=== PATIENT | male | born 1990 | race African-American/Black ===

== ENCOUNTER 2017-03-19 04:09 | Emergency (ER) | payer OTHER ==
[2017-03-19 04:45] VITALS: BP 146/88; PULSE 66; TEMP 98.1; BMI 36.0
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
== END 2017-03-19 06:10 | disposition home or self-care (01) ==
LOC: JER 04:09
DX: M25.572 Pain in left ankle and joints of left foot (principal)
CPT/HCPCS: 73610-TC-LT; 99281-25

== ENCOUNTER 2019-05-12 10:19 | Emergency (ER) | payer BC, OTHER ==
[2019-05-12 10:24] VITALS: TEMP 97.7; BMI 34.9
--- NOTE | 2019-05-12 10:33 | PDOC ---
History of Present Illness - General Chief Complaint: Lightheaded Stated Complaint: DIZZY/FAINTING Time Seen by Provider: 05/12/19 10:33 History Source: Patient Exam Limitations: No Limitations - History of Present Illness Initial Comments: 28 year old male with no PMH, nicotine use (hookah, last vaped x1 year ago) presented to ED for lightheadedness x1 week, worsening yesterday. Patient reported he smoked hookah the night before his symptoms started. He reported he awoke feeling lightheaded as he stood from sitting to standing to get out of bed. He reported throughout the week he had a couple more occurrences, similar in that they seem to occur when he went from sitting to standing. He reported that yesterday he had three instances of lightheadedness, and that one of the episodes he almost passed out. He reported in that episode he up from sitting to standing and had immediately lifted his daughter above his head. He denied LOC, head injury, fall, chest pain, shortness of breath, the workshop of the swelling, history of travel, history of blood clot, history of hormone use, surgical history, hemoptysis, palpitations. He denied history of early cardiac in the family. ROS General: denied fever, chills, generalized weakness. HEENT: denied sore throat, rhinorrhea, ear pain. Cardiovascular: admitted to [facility]. denied chest pain, palpitations, syncope, diaphoresis. Respiratory: denied shortness of breath, cough, sputum production, hemoptysis. Gastrointestinal: denied abdominal pain, nausea, vomiting, diarrhea, constipation, blood in stool. Genitourinary: denied dysuria, increased urinary frequency, hematuria, urinary incontinence, flank pain. Back: denied back pain. Musculoskeletal: denied joint pain, muscle pain, joint swelling. Neurological: denied headache, dizziness, numbness, tingling, weakness. Integumentary: denied rash, laceration, abrasion. Hematologic/Lymphatic: denied bruising or bleeding. PE Constitutional: Well-nourished, Well-developed, appearing stated age. HEENT: head is normocephalic, atraumatic. EOMI. PERRLA. Neck: supple. Full ROM. Cardiovascular: regular heart rhythm. Normal S1 and S2. no murmurs. no pericardial friction rub. Respiratory: clear to auscultation bilaterally. no crackles, rhonchi or wheezing. no stridor. Gastrointestinal: soft, flat, nontender. normal bowel sounds. no rebound, guarding, or masses. Extremities: peripheral pulses intact and equal. no lower extremity edema noted. no calf tenderness bilaterally. Neurological: CN 2-12 grossly intact. moves all four extremities. Psych: awake, alert, oriented x3. follows commands. answers questions appropriately. Past History - Past Medical History Allergies/Adverse Reactions: Allergies Allergy/AdvReac Type Severity Reaction Status Date / Time No Known Allergies Allergy Verified 05/12/19 10:24 Home Medications: Ambulatory Orders NK [No Known Home Medication] 07/18/16 - Psycho Social/Smoking Cessation Hx Smoking History: Current every day smoker Have you smoked in the past 12 months: No Information on smoking cessation initiated: No Hx Alcohol Use: No Drug/Substance Use Hx: No *Physical Exam - Vital Signs Last Vital Signs Temp Pulse Resp BP Pulse Ox 97.7 F 67 18 116/87 99 05/12/19 10:21 05/12/19 10:21 05/12/19 10:21 05/12/19 10:21 05/12/19 10:21 ED Treatment Course - LABORATORY CBC & Chemistry Diagram: 05/12/19 11:00 05/12/19 11:00 Medical Decision Making - Medical Decision Making 28 year old male with above PMH presented to ED for lightheadedness episodes x1 week, worsening yesterday. Initial Vital Signs Temp Pulse Resp BP Pulse Ox 97.7 F 67 18 116/87 99 05/12/19 10:21 05/12/19 10:21 05/12/19 10:21 05/12/19 10:21 05/12/19 10:21 Afebrile. No tachycardia. No tachypnea. No hypotension. No hypoxia on room air. Labs ordered: CBC, CMP, TSH, coags Imaging ordered: CXR Medications ordered: normal saline bolus 1000 cc once EKG performed at 1055: rate 52, regular rhythm, normal axis, normal intervals, QTc 409, no acute ST changes, no IA depression, no delta wave. CXR report: Name: [facility]ACK[facility]REG[facility] DEPARTMENT OF RADIOLOGY Phys: Coral Rodríguez RESIDENT : 1990 Age: 28 Sex: M [facility] Acct: [id number] Loc: [address] Exam Date: 05/12/19 Status: ROSY Schaeffer [id number] Unit Number: [id number] EXAM#: TYPE/EXAM: RESULT: [id number] RAD/CHEST X-RAY PORTABLE* Chest: Lightheadedness A single apical lordotic view reveals clear lungs, normal mediastinum and sharp angles. The bones and soft tissues are intact. There are no prior studies for comparison. Impression: No acute chest pathology. Apical lordotic projection. No comparison studies. Reported By: Steven Whitfield MD [id number] 05/12/19 12:11 Laboratory Last Values WBC 7.2 K/mm3 (4.0-10.0) 05/12/19 11:00 RBC 5.00 M/mm3 (4.00-5.60) 05/12/19 11:00 Hgb 15.2 GM/dL (11.7-16.9) 05/12/19 11:00 Hct 43.4 % (35.4-49) 05/12/19 11:00 MCV 86.7 fl (80-96) 05/12/19 11:00 MCH 30.4 pg (25.7-33.7) 05/12/19 11:00 MCHC 35.1 g/dl (32.0-35.9) 05/12/19 11:00 RDW 13.6 % (11.9-15.9) 05/12/19 11:00 Plt Count 138 K/MM3 (134-434) 05/12/19 11:00 MPV 10.1 fl (7.5-11.1) 05/12/19 11:00 Absolute Neuts (auto) 3.0 K/mm3 (1.5-8.0) 05/12/19 11:00 Neutrophils % 42.2 % (42.8-82.8) L 05/12/19 11:00 Lymphocytes % 46.0 % (8-40) H 05/12/19 11:00 Monocytes % 8.0 % (3.8-10.2) 05/12/19 11:00 Eosinophils % 3.1 % (0-4.5) D 05/12/19 11:00 Basophils % 0.7 % (0-2.0) 05/12/19 11:00 Nucleated RBC % 0 % (0-0) 05/12/19 11:00 PT with INR 11.80 SEC (9.7-13.0) 05/12/19 11:00 INR 1.00 (0.83-1.09) 05/12/19 11:00 PTT (Actin FS) 37.7 SECONDS (25.2-36.5) H 05/12/19 11:00 Sodium 142 mmol/L (136-145) 05/12/19 11:00 Potassium 4.1 mmol/L (3.5-5.1) 05/12/19 11:00 Chloride 110 mmol/L (98-107) H 05/12/19 11:00 Carbon Dioxide 26 mmol/L (21-32) 05/12/19 11:00 Anion Gap 5 MMOL/L (8-16) L 05/12/19 11:00 BUN 20.5 mg/dL (7-18) H 05/12/19 11:00 Creatinine 1.1 mg/dL (0.55-1.3) 05/12/19 11:00 Est GFR (CKD-EPI)AfAm 106.06 05/12/19 11:00 Est GFR (CKD-EPI)NonAf 91.51 05/12/19 11:00 Random Glucose 112 mg/dL (74-106) H 05/12/19 11:00 Calcium 9.5 mg/dL (8.5-10.1) 05/12/19 11:00 Total Bilirubin 0.4 mg/dL (0.2-1) 05/12/19 11:00 AST 21 U/L (15-37) 05/12/19 11:00 ALT 30 U/L (13-61) 05/12/19 11:00 Alkaline Phosphatase 74 U/L (45-117) 05/12/19 11:00 Total Protein 7.2 g/dl (6.4-8.2) 05/12/19 11:00 Albumin 4.2 g/dl (3.4-5.0) 05/12/19 11:00 TSH 2.01 uIU/ml (0.358-3.74) 05/12/19 11:00 Pt reported no recurrence of symptoms. Pt advised to F/U with PCP, refrain from physical activity/exertion. Pt discharged. Discharge - Discharge Information Problems reviewed: Yes Clinical Impression/Diagnosis: Lightheadedness Condition: Stable Disposition: HOME - Admission No - Follow up/Referral - Patient Discharge Instructions Patient Printed Discharge Instructions: DI for Orthostatic Hypotension Additional Instructions: Follow up with your primary care doctor within 3 days regarding your Emergency Room visit. Your care is not complete until you follow up. Bring all paperwork to your appointment that you were given today. Return to the Emergency Department for increasing pain, chest pain, shortness of breath, vomiting, passing out, or any other new, worsening or concerning symptoms. Do not perform any physical activity until you are evaluated by your primary care doctor. - Post Discharge Activity Work/Back to School Note: Back to Work
[2019-05-12] MEDS ORDERED: SODIUM CHLORIDE 1,000 ML IV STA (10:51)
[2019-05-12 11:03] VITALS: BP 135/67; PULSE 59
[2019-05-12 11:14] LABS: BASO % 0.7 % (0-2.0); EOS % 3.1 % (0-4.5); HEMATOCRIT 43.4 % (35.4-49); HEMOGLOBIN 15.2 GM/dL (11.7-16.9); MCH 30.4 pg (25.7-33.7); MCHC 35.1 g/dl (32.0-35.9); MEAN CELL VOLUME 86.7 fl (80-96); MEAN PLT VOLUME 10.1 fl (7.5-11.1); NEUT % 42.2 % (42.8-82.8); PLATELET COUNT 138 K/MM3 (134-434); RDW 13.6 % (11.9-15.9); WHITE BLOOD COUNT 7.2 K/mm3 (4.0-10.0)
[2019-05-12 11:31] LABS: PROTHROMBIN TIME (PATIENT) 11.8 SEC (9.7-13.0)
[2019-05-12 11:34] LABS: ACTIVATED PTT 37.7 SECONDS (25.2-36.5)
--- NOTE | 2019-05-12 11:38 | PDOC ---
Documentation entered by Herb Thacker SCRIBE, acting as scribe for Rober Fields MD. Rober Fields MD: This documentation has been prepared by the Kedar hancock Angel, SCRIBE, under my direction and personally reviewed by me in its entirety. I confirm that the documentation accurately reflects all work, treatment, procedures, and medical decision making performed by me. Attending Attestation - Resident Resident Name: MarcosCoral - ED Attending Attestation I have performed the following: I have examined & evaluated the patient, The case was reviewed & discussed with the resident, I agree w/resident's findings & plan, Exceptions are as noted - HPI HPI: 05/12/19 11:30 28y M no pmhx presents with complaint of intermitent episodes of lightheadedness. Patient states that the symptoms seem to occur when the patient stands up last for several seconds and then rsolves. As per these lightheaded episodes he also endorses flashes of light and darkening vision. Patient denies any other symptoms including any headache, chest pain, neck pain , back pain, abdominal pain, nausea, vomiting, vision changes, dysarthria, focal numbness, tingling, weakness, diarrhea, melena, BPR. Patient came today as he had 3 of these episodes yesterday that were under similar circumstances when he was standing up. Patient states he has been asymptomatic today. Patient states he has been changing his diet and increasing his water intake. - Physicial Exam PE: 05/12/19 11:35 GENERAL: The patient is awake, alert, and fully oriented, Nontoxic - in no acute distress. HEAD: Normocephalic, atraumatic. EYES: extraocular movements intact, sclera anicteric, conjunctiva clear. ENT: Normal voice, Moist mucous membranes. NECK: Normal range of motion, supple LUNGS: Breath sounds equal, clear to auscultation bilaterally. No wheezes, no rhonchi, no rales. HEART: Regular rate and rhythm, normal S1 and S2 without murmur, rub or gallop. ABDOMEN: Soft, nontender, No guarding, no rebound. No CVA tenderness EXTREMITIES: Normal range of motion, no edema. NEUROLOGICAL: No facial assymetry, Normal speech, PSYCH: Normal mood, normal affect. SKIN: Warm, Dry, normal turgor, - Medical Decision Making 05/12/19 11:35 Differential for the patient's symptoms include but not limited to anemia, metabolic derangements, dehydration We will obtain blood work, will give the patient fluids will obtain EKG to screen for arrhythmia Will reassess 05/12/19 12:01 Patient's blood work is reviewed it is unremarkable patient is asymptomatic we will discharge patient with outpatient follow-up Heart Score/ECG Review - ECG Impressions Comment:: 05/12/19 11:35 Twelve-lead EKG was performed and reviewed by me. There is normal sinus rhythm with a rate of 56 The axis is normal. The intervals are normal. There is normal R wave progression There are no ST or T wave abnormalities. Impression: Sinus bradycardia
[2019-05-12 11:51] LABS: ALBUMIN 4.2 g/dl (3.4-5.0); BILIRUBIN,TOTAL 0.4 mg/dL (0.2-1); BLOOD UREA NITROGEN 20.5 mg/dL (7-18); CALCIUM 9.5 mg/dL (8.5-10.1); CREATININE 1.1 mg/dL (0.55-1.3); POTASSIUM 4.1 mmol/L (3.5-5.1); TOT PROT 7.2 g/dl (6.4-8.2)
--- NOTE | 2019-05-13 09:32 | EKG ---
Test Reason : Blood Pressure : / mmHG Vent. Rate : 056 BPM Atrial Rate : 056 BPM P-R Int : 152 ms QRS Dur : 098 ms QT Int : 424 ms P-R-T Axes : 023 069 046 degrees QTc Int : 409 ms SINUS BRADYCARDIA OTHERWISE NORMAL ECG NO PREVIOUS ECGS AVAILABLE Confirmed by Rosalva Renteria ([id number]) on 05/13/2019 9:32:10 AM Referred By: Confirmed By:Rosalva Renteria
== END 2019-05-12 12:34 | disposition home or self-care (01) ==
LOC: JER 10:19
PROC: 3E0337Z Introduction of Electrolytic and Water Balance Substance into Peripheral Vein, Percutaneous Approach (ICD-10-PCS; principal; 2019-05-12)
DX: R42 Dizziness and giddiness (principal); R00.1 Bradycardia, unspecified
CPT/HCPCS: 36415; 71045-TC-FY; 80053; 84443; 85025; 85610; 85730; 93005; 93010; 99285-25; J7030

== ENCOUNTER 2020-08-11 17:47 | Emergency (ER) | payer BC ==
[2020-08-11 17:52] VITALS: BP 134/71; PULSE 69; TEMP 98; BMI 34.2
[2020-08-11 19:23] LABS: URINE APPEARANCE CLEAR; URINE BILIRUBIN NEGATIVE (NEGATIVE); URINE COLOR YELLOW; URINE GLUCOSE (UA) NEGATIVE (NEGATIVE); URINE KETONE TRACE (NEGATIVE); URINE LEUK ESTERASE NEGATIVE (NEGATIVE); URINE NITRITE NEGATIVE (NEGATIVE); URINE PROTEIN NEGATIVE (NEGATIVE)
== END 2020-08-11 21:21 | disposition home or self-care (01) ==
LOC: JER 17:47
DX: K59.00 Constipation, unspecified (principal); R10.32 Left lower quadrant pain
CPT/HCPCS: 74019-TC-FY; 76882-TC-RT-FY; 81003; 87086; 99285-25